=== PATIENT | female | born 1985 | race Caucasian/White ===

== ENCOUNTER → 2024-09-10 11:23 | Outpatient (REF) | payer OTHER, SELFPAY | LOC: WDC 11:23 | PROVIDERS: ATTENDING PHYSICIAN Nurse Practitioner Adult Health; FAMILY PHYSICIAN Nurse Practitioner Family | DX: Z12.31 Encounter for screening mammogram for malignant neoplasm of breast (principal) | CPT/HCPCS: 77063; 77067 ==

== ENCOUNTER → 2024-12-12 12:00 | Outpatient (REF) | payer BC, SELFPAY | LOC: HWRAD 12:00 | PROVIDERS: ATTENDING PHYSICIAN Nurse Practitioner Family | DX: M25.551 Pain in right hip (principal) | CPT/HCPCS: 73502 ==

== ENCOUNTER → 2025-01-02 15:13 | Outpatient (REF) | payer BC, SELFPAY | LOC: HWRAD 15:13 | PROVIDERS: ATTENDING PHYSICIAN Nurse Practitioner Family | DX: S69.92XA Unspecified injury of left wrist, hand and finger(s), initial encounter (principal) | CPT/HCPCS: 73130 ==